=== PATIENT | female | born 1980 ===

== ENCOUNTER 2021-07-30 11:45 | Inpatient (IN) | payer OTHER ==
[~2021-07-30] VITALS: Ht 165.1 cm; Wt 122.5 kg
[2021-07-31] MEDS ORDERED: LEXAPRO5 MG PO (07:45)
[2021-08-01] MEDS ORDERED: DICLOFENAC SODI75 MG (13:07)
[2021-08-01] MEDS ORDERED: ESCITALOPRAM OX10 MG (13:07)
[2021-08-01] MEDS ORDERED: BUSPIRONE HCL10 MG (13:07)
[2021-08-01] MEDS ORDERED: FLUOXETINE HCL20 MG (13:07)
== END 2021-08-04 14:14 | disposition home or self-care (01) | DRG 743 ==
LOC: SURG-SUITE 08-01 08:23 → O/R 08-01 08:23 → SURH 08-01 10:00 → OB/GYN 08-01 15:38 → SURG-SUITE 08-01 16:17
PROVIDERS: ADMIT Specialist; ATTEND Specialist
PROC: 0UT74ZZ Resection of Bilateral Fallopian Tubes, Percutaneous Endoscopic Approach (ICD-10-PCS; 2021-08-01)
PROC: 0UQF4ZZ Repair Cul-de-sac, Percutaneous Endoscopic Approach (ICD-10-PCS; 2021-08-01)
PROC: 0JQC0ZZ Repair Pelvic Region Subcutaneous Tissue and Fascia, Open Approach (ICD-10-PCS; 2021-08-01)
PROC: 0UT94ZZ Resection of Uterus, Percutaneous Endoscopic Approach (ICD-10-PCS; principal; 2021-08-01 10:00)
DX: N81.6 Rectocele (principal); N81.4 Uterovaginal prolapse, unspecified; N72 Inflammatory disease of cervix uteri; N83.8 Other noninflammatory disorders of ovary, fallopian tube and broad ligament